=== PATIENT | female | born 1965 | race Caucasian/White ===

== ENCOUNTER 2018-04-14 09:19 | Emergency (ER) | payer OTHER ==
[~2018-04-14] VITALS: Ht 162.6 cm; Wt 58.6 kg
[~2018-04-14 09:19] MED LIST: ASP81TEC PO; ATOR40TA PO; BACL10TA PO; CEPH250T; CYCL10TA9 PO; DCS100C PO; FLC150T; GBPN300C PO; HYDR-34 PO; HYDR1TAB PO; IBP600T1 PO; KETO-22 PO; MTP25TSR PO; NAPR-243; OXYC-12 PO; PRM25T PO
--- OUTSIDE RECORDS SUMMARY | 2018-04-14 10:58 | XMS REPORT | Continuity of Care Document ---
Author Author [facility] Organization [facility] Address Unknown Phone Unavailable Allergies Active Description Code Type Severity Reaction Onset Reported/Identified Relationship to Patient Clinical Status Yes prednisone [id number] Drug Allergy Unknown N/A 05/20/2006 Yes aspirin [id number] Drug Allergy Moderate N/A 08/13/2012 Yes caffeine [id number] Drug Allergy Moderate N/A 08/13/2012 Yes fluconazole [id number] Drug Allergy Unknown N/A 06/19/2015 Medications There is no data. Problems Date Dx Coded Attending Type Code Diagnosis Diagnosed By 09/25/2010 Ot 787.02 08/19/2011 Ot 719.45 08/19/2011 Ot 843.9 08/19/2011 Ot E000.0 08/19/2011 Ot E014.1 08/19/2011 Ot E849.7 08/19/2011 Ot E927.0 09/14/2011 Ot 401.9 09/14/2011 Ot 724.2 08/14/2012 Ot 724.5 08/14/2012 Ot 733.6 09/01/2012 Ot 414.01 09/01/2012 Ot 724.4 09/01/2012 Ot 780.79 09/01/2012 Ot 786.59 09/01/2012 Ot V58.69 09/12/2014 CRISTHIAN BALLESTEROS MD Ot 920 09/12/2014 CRISTHIAN BALLESTEROS MD Ot 959.01 09/12/2014 CRISTHIAN BALLESTEROS MD Ot E000.8 09/12/2014 CRISTHIAN BALLESTEROS MD Ot E968.9 06/19/2015 Ot 719.45 06/19/2015 Ot 724.4 06/19/2015 Ot 959.9 06/19/2015 Ot E000.0 06/19/2015 Ot E849.7 06/19/2015 Ot E928.9 06/19/2015 Ot 272.4 06/19/2015 Ot V58.69 06/23/2015 FENECH DODAMARIS Ot 618.2 06/27/2015 FENECH DO, DAMARIS Tavares Ot 618.01 06/27/2015 FENECH DO, DAMARIS Tavares Ot 618.04 06/27/2015 FENECH DO, DAMARIS Tavares Ot V72.63 06/27/2015 FENECH DO, DAMARIS Tavares Ot V72.81 06/27/2015 FENECH DO, DAMARIS Tavares Ot V74.8 07/17/2015 FENECH DO, DAMARIS Tavares Ot 618.01 07/17/2015 FENECH DO, DAMARIS Tavares Ot 618.04 07/17/2015 FENECH DO, DAMARIS Tavares Ot V72.63 07/17/2015 FENECH DO, DAMARIS Tavares Ot V72.81 07/17/2015 FENECH DO, DAMARIS Tavares Ot V74.8 08/25/2015 STERLING MAYER MD Ot F41.9 08/25/2015 STERLING MAYER MD Ot F45.8 Procedures There is no data. Results There is no data. Encounters ACCT No. Visit Date/Time Discharge Status Pt. Type Provider Facility Loc./Unit Complaint [id number] 08/25/2015 15:08:00 08/25/2015 17:36:00 DIS Emergency STERLING MAYER MD [facility] ER [id number] 06/22/2015 07:49:00 06/23/2015 09:45:00 DIS Outpatient DAMARIS BERNAL DO [facility] [id number] 06/19/2015 14:36:00 06/19/2015 23:59:59 CLS Outpatient DAMARIS BERNAL DO [facility] PREOP [id number] 09/12/2014 14:00:00 09/12/2014 17:04:00 DIS Emergency CRISTHIAN BALLESTEROS MD [facility] ER [id number] 06/19/2015 14:36:00 Document Registration [id number] 10/27/2012 12:32:00 Document Registration [id number] 09/01/2012 09:26:00 Document Registration [id number] 08/13/2012 01:50:00 Document Registration [id number] 09/14/2011 05:22:00 Document Registration [id number] 08/22/2011 16:54:00 Document Registration [id number] 08/19/2011 09:24:00 Document Registration [id number] 09/25/2010 05:57:00 Document Registration [email or web address] 08/26/2015 07:13:16 ACT Document Registration
--- NOTE | 2018-04-14 11:04 | Diagnostic Imaging Report ---
PROCEDURE: CT head without contrast. TECHNIQUE: Multiple contiguous axial images were obtained through the brain without the use of intravenous contrast. INDICATION: Bumped top of head on a cabinet. Now with headache and blurred vision. CORRELATION STUDY: 09/12/2014 FINDINGS: Ventricles and sulci are slightly prominent for the patient's age. Normal martin-white differentiation. No findings to suggest edema. There is no intracranial hemorrhage. No midline shift or mass effect. The bony calvarium appearing intact and the visualized paranasal sinuses and mastoid air cells clear. IMPRESSION: Negative for acute traumatic intracranial abnormality Dictated by: Dictated on workstation # [id number]
[2018-04-14] MEDS ORDERED: KETOROLAC 30 MG/ML VIAL IM ONE (12:00)
[2018-04-14] MEDS ORDERED: ORPHENADRINE 60 MG/2 ML (NORFLEX) AMP IM ONE (12:00)
--- NOTE | 2018-04-14 12:07 | ED Head Injury ---
General Chief Complaint: Head/Cervical Problems Stated Complaint: HIT HEAD Nursing Triage Note: PT STATES SHE WAS UNDER A CABINET TO PLUG IN HER COMPUTER AND WHEN SHE RAISED UP SHE HIT HER HEAD ON THE CABINET. CC OF PAIN TO THE TOP OF HER HEAD. NO LOC, BUT FEELS A LITTLE NAUSEA. STATES "IT FERREIRA ON THE TOP OF MY HEAD." Source: patient Exam Limitations: no limitations History of Present Illness Date Seen by Provider: April 14, 2018 Time Seen by Provider: 10:15 Initial Comments This 52-year-old woman presents to the emergency room with complaints of headache, nausea, and blurred vision after striking her head on a cart while getting up from a bent position. This occurred at work. She denies loss of consciousness although her vision did go black for a few seconds. Nausea has improved the headache is worsening. Pain is worse despite taking 1300 mg of Tylenol. Allergies and Home Medications Allergies Coded Allergies: fluconazole (Unverified Allergy, Unknown, 06/19/15) prednisone (Verified Allergy, Unknown, 05/20/06) aspirin (Unverified Adverse Reaction, Intermediate, 08/13/12) caffeine (Unverified Adverse Reaction, Intermediate, 08/13/12) Home Medications Ondansetron 4 Mg Tab.rapdis, 4 MG SL Q4H PRN for NAUSEA/VOMITING-1ST LINE Prescribed by: SHERI ORTEGA on 04/14/18 1210 Patient Home Medication List Home Medication List Reviewed: Yes Review of Systems Constitutional: no symptoms reported Eyes: See HPI Ears, Nose, Mouth, Throat: no symptoms reported Respiratory: no symptoms reported Cardiovascular: no symptoms reported Gastrointestinal: see HPI Genitourinary: no symptoms reported : No Musculoskeletal: no symptoms reported Skin: no symptoms reported Psychiatric/Neurological: See HPI Endocrine: No Symptoms Reported Hematologic/Lymphatic: No Symptoms Reported Past Sgxhqnx-Bbqbke-Yhdfsu Hx Past Med/Social Hx: Reviewed and Corrections made Patient Social History Alcohol Use: Denies Use Recreational Drug Use: No Smoking Status: Never a Smoker Recent Foreign Travel: No Contact w/Someone Who Travel: No Recent Infectious Disease Expo: No Recent Hopitalizations: No Past Medical History Surgeries: Yes (BACK SURGERY, TUBES TIED, AP repair) Bladder Surgery, Orthopedic, Tubal Ligation Respiratory: No Cardiac: Yes (PREVIOUS HEART CATH 2011, 45% BLOCKAGE NO STENTS) Neurological: No Reproductive Disorders: No Female Reproductive Disorders: Denies EVENT MARKETING COORDINATOR History: Menopausal Sexually Transmitted Disease: No HIV/AIDS: No Genitourinary: No Gastrointestinal: No Musculoskeletal: Yes (PREVIOUS BACK SURGERY) Chronic Back Pain Endocrine: No Loss of Vision: Denies Hearing Impairment: Denies Cancer: No Psychosocial: No Integumentary: No Blood Disorders: No Adverse Reaction/Blood Tranf: No Family Medical History ABNORMAL PAP G8 SISTER FH: COPD (chronic obstructive pulmonary disease) 19 FATHER Hypertension 19 FATHER Physical Exam Vital Signs Vital Signs - First Documented 04/14/18 09:35 Temp 97.3 Pulse 83 Resp 20 B/P (MAP) 143/97 (112) Pulse Ox 99 O2 Delivery Room Air Capillary Refill : Less Than 3 Seconds General Appearance: WD/WN, mild distress HEENT: PERRL/EOMI, TMs normal, pharynx normal, other (Tenderness over the central parietal scalp) Neck: non-tender, supple, normal inspection Cardiovascular: regular rate, rhythm, no edema, no murmur Respiratory: lungs clear, normal breath sounds, no respiratory distress, no accessory muscle use Gastrointestinal: normal bowel sounds, non tender, soft Extremities: normal inspection Psychiatric: alert, oriented x 3 Crainal Nerves: normal hearing, normal speech, PERRL Coordination/Gait: normal finger to nose, normal gait Motor/Sensory: no motor deficit, no sensory deficit Skin: normal color, warm/dry Progress/Results/Core Measures Results/Orders My Orders Orders - SHERI MILLER MD Ct Head Wo (04/14/18 10:21) Ketorolac Injection (Toradol Injection) (04/14/18 12:00) Orphenadrine Injection (Norflex Injectio (04/14/18 12:00) Medications Given in ED Vital Signs/I&O Blood Pressure Mean: 112 Progress Progress Note : Progress Note Risks and benefits of CT imaging discussed with patient. She wishes to proceed with CT imaging. CT was unremarkable. Patient was treated with Toradol and Norflex and dismissed home. Concussion precautions were reviewed. Occupational health paperwork was completed. Diagnostic Imaging Diagonstic Imaging: CT Plain Films/CT/US/NM/MRI: head Comments NAME: VICTOR MANUEL BANEGAS MED REC#: [id number] PT STATUS: DEP ER : 1965 PHYSICIAN: SHERI MILLER MD ADMIT DATE: 04/14/18/ER Signed Date of Exam: 04/14/18 CT HEAD WO PROCEDURE: CT head without contrast. TECHNIQUE: Multiple contiguous axial images were obtained through the brain without the use of intravenous contrast. INDICATION: Bumped top of head on a cabinet. Now with headache and blurred vision. CORRELATION STUDY: 09/12/2014 FINDINGS: Ventricles and sulci are slightly prominent for the patient's age. Normal martin-white differentiation. No findings to suggest edema. There is no intracranial hemorrhage. No midline shift or mass effect. The bony calvarium appearing intact and the visualized paranasal sinuses and mastoid air cells clear. IMPRESSION: Negative for acute traumatic intracranial abnormality Dictated by: Dictated on workstation # [id number] Dict: 04/14/18 1047 Trans: 04/14/18 1531 Interpreted by: BRUNO BELLE DO Electronically signed by: BRUNO BELLE DO 04/14/18 1531 Departure Impression Primary Impression: Concussion without loss of consciousness Qualified Codes: S06.0X0A - Concussion without loss of consciousness, initial encounter Disposition: 01 HOME, SELF-CARE Condition: Improved Departure-Patient Inst. Decision time for Depature: 12:04 Referrals: JASWINDER HERRERA MD (PCP/Family) Primary Care Physician Patient Instructions: Concussion, Adult (DC) Add. Discharge Instructions: For pain you may take Ibuprofen up to 600 mg every 6 hours as needed. You may add ibuprofen up to 1000 mg every 6 hours as needed for additional pain relief. Drink plenty of clear liquids to stay well-hydrated. Avoid any activity that could predispose you to further head injury until at least 7 days after concussion symptoms resolve. These activities might include use of ladders, bike riding, horseback riding, contact sports, etc. If any activity causes increase in concussion symptoms including nausea, blurry vision, confusion, headache, irritability, sleep disturbance, etc., then stop that activity and rest. You may use Zofran (ondansetron) as prescribed for nausea and vomiting. All discharge instructions reviewed with patient and/or family. Voiced understanding. Scripts Ondansetron (Zofran Odt) 4 Mg Tab.rapdis 4 MG SL Q4H PRN for NAUSEA/VOMITING-1ST LINE, #8 TAB Prov: SHERI MILLER MD 04/14/18 Work/School Note: Work Release Form Date Seen in the Emergency Department: April 14, 2018 Return to Work: April 17, 2018 Other Restrictions Listed Below: No activity at risk for head injury or strenuous activity x 1 week. SHERI MILLER MD April 14, 2018 12:07
[2018-04-14] MEDS ORDERED: ONDA4TAB8 SL (12:10)
[2018-04-14 12:21] VITALS: BP 131/83
== END 2018-04-14 12:20 | disposition home or self-care (01) ==
LOC: EDUNIT# 09:19 → ER 09:21
DX: S06.0X0A Concussion without loss of consciousness, initial encounter (principal); Z98.51 Tubal ligation status; Z88.6 Allergy status to analgesic agent; Z88.8 Allergy status to other drugs, medicaments and biological substances; W22.09XA Striking against other stationary object, initial encounter
CPT/HCPCS: 70450; 96372

== ENCOUNTER 2018-05-09 15:15 | Emergency (ER) | payer BC, OTHER ==
[~2018-05-09] VITALS: Ht 162.6 cm; Wt 63.5 kg
[~2018-05-09 15:15] MED LIST changes: +ONDA4TAB8 SL
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
--- NOTE | 2018-05-09 15:40 | ED GU-Female ---
General Chief Complaint: -Female Stated Complaint: ABNORMAL VAG BLEEDING X 2 DAYS Nursing Triage Note: PATIENT STATES THAT SHE HAS NOT HAD A PERIOD IN 7 YEARS. SHE STARTED HAVING HEAVY BLEEDING 2 DAYS AGO AND IS FEELING WEAK. SHE IS SOAKING THROUGH PADS EVERY 1-1.5 HRS. Nursing Sepsis Screen: No Definite Risk Source: patient Exam Limitations: no limitations History of Present Illness Date Seen by Provider: May 09, 2018 Time Seen by Provider: 15:38 Initial Comments to ER per private vehicle with reports of vaginal bleeding for 2 days. She also reports some suprapubic abdominal pain. She is postmenopausal with last menstrual period about 7 years ago. She states that she's used nearly one tampon every hour to 1.5 hours since yesterday. She is beginning to feel lightheaded.additionally, she states that on Friday in the past week, 05/04/18 she developed some breast tenderness which was unusual for her. She is not on hormone therapy.yesterday at the onset of bleeding she did call Dr. BERNAL from [employer] who will see her on the . Timing/Duration: just prior to arrival Severity/Quality: moderate Location: suprapubic Radiation: suprapubic Activities at Onset: none Prior Genitourinary Problems: none Allergies and Home Medications Allergies Coded Allergies: fluconazole (Unverified Allergy, Unknown, 06/19/15) prednisone (Verified Allergy, Unknown, 05/20/06) aspirin (Unverified Adverse Reaction, Intermediate, 08/13/12) caffeine (Unverified Adverse Reaction, Intermediate, 08/13/12) Home Medications Medroxyprogesterone Acetate 10 Mg Tablet, 10 MG PO DAILY Prescribed by: EJ FUENTES on 05/09/18 1648 Ondansetron 4 Mg Tab.rapdis, 4 MG SL Q4H PRN for NAUSEA/VOMITING-1ST LINE Prescribed by: SHERI ORTEGA on 04/14/18 1210 Patient Home Medication List Home Medication List Reviewed: Yes Review of Systems Constitutional: see HPI EENTM: see HPI Respiratory: no symptoms reported Cardiovascular: no symptoms reported Genitourinary: no symptoms reported Musculoskeletal: no symptoms reported Skin: see HPI Psychiatric/Neurological: No Symptoms Reported Endocrine: No Symptoms Reported Past Ssbftei-Bmxvff-Uvrpqs Hx Patient Social History Alcohol Use: Denies Use Recreational Drug Use: No Smoking Status: Never a Smoker 2nd Hand Smoke Exposure: No Recent Foreign Travel: No Contact w/Someone Who Travel: No Recent Infectious Disease Expo: No Recent Hopitalizations: No Physical Abuse: No Sexual Abuse: No Seasonal Allergies Seasonal Allergies: No Past Medical History Surgeries: Yes (BACK SURGERY, TUBES TIED, AP repair) Bladder Surgery, Orthopedic, Tubal Ligation Respiratory: No Cardiac: Yes (PREVIOUS HEART CATH 2011, 45% BLOCKAGE NO STENTS) Neurological: No Reproductive Disorders: No 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 Sexually Transmitted Disease: No HIV/AIDS: No Genitourinary: No Gastrointestinal: No Musculoskeletal: Yes (PREVIOUS BACK SURGERY) Chronic Back Pain Endocrine: No Loss of Vision: Denies Hearing Impairment: Denies Cancer: No Psychosocial: No Nursing Suicide Risk Score: 0 Integumentary: No Blood Disorders: No Adverse Reaction/Blood Tranf: No Family Medical History ABNORMAL PAP G8 SISTER FH: COPD (chronic obstructive pulmonary disease) 19 FATHER Hypertension 19 FATHER Physical Exam Vital Signs Vital Signs - First Documented 05/09/18 15:20 Temp 97.8 Pulse 77 Resp 18 B/P (MAP) 141/88 (105) Pulse Ox 98 Capillary Refill : Less Than 3 Seconds General Appearance: WD/WN, no apparent distress HEENT: PERRL/EOMI, normal ENT inspection Neck: non-tender, full range of motion Respiratory: no respiratory distress, no accessory muscle use Gastrointestinal: normal bowel sounds, soft, tenderness (suprapubic) Pelvic: normal external exam, other (cervical loss was visualized with a small amount of dark blood at the cervical os and in the vaginal vault. This was suctioned out using a yankauer. No active bleeding visualized at this time. Question of a small nodule to the superior lateral aspectof the cervix itself but there is no bleeding from this) Extremities: normal range of motion, non-tender Neurologic/Psychiatric: alert, normal mood/affect, oriented x 3 Skin: normal color, warm/dry Progress/Results/Core Measures Suspected Sepsis Recent Fever Within 48 Hours: No Infection Criteria Present: None New/Unexplained Altered Menta: No Sepsis Screen: No Definite Risk SIRS Temperature:97.8 Pulse: 77 Respiratory Rate: 18 Laboratory Tests 05/09/18 15:45: White Blood Count 7.7 Blood Pressure 141 /88 Mean: 105 Laboratory Tests 05/09/18 15:45: Creatinine 0.66, INR Comment 1.0, Platelet Count 187, Total Bilirubin 0.4 Results/Orders Lab Results Laboratory Tests Test 05/09/18 15:35 05/09/18 15:45 Range/Units Urine Color YELLOW Urine Clarity CLEAR Urine pH 6.5 5-9 Urine Specific [place] 1.010 L 1.016-1.022 Urine Protein NEGATIVE NEGATIVE Urine Glucose (UA) NEGATIVE NEGATIVE Urine Ketones NEGATIVE NEGATIVE Urine Nitrite NEGATIVE NEGATIVE Urine Bilirubin NEGATIVE NEGATIVE Urine Urobilinogen NORMAL NORMAL MG/DL Urine Leukocyte Esterase NEGATIVE NEGATIVE Urine RBC (Auto) 5+ H NEGATIVE Urine RBC 25-50 H /HPF Urine WBC NONE /HPF Urine Squamous Epithelial Cells 0-2 /HPF Urine Crystals NONE /LPF Urine Bacteria NEGATIVE /HPF Urine Casts NONE /LPF Urine Mucus NEGATIVE /LPF Urine Culture Indicated NO White Blood Count 7.7 4.3-11.0 10^3/uL Red Blood Count 4.32 L 4.35-5.85 10^6/uL Hemoglobin 13.4 11.5-16.0 G/DL Hematocrit 39 35-52 % Mean Corpuscular Volume 89 80-99 FL Mean Corpuscular Hemoglobin 31 25-34 PG Mean Corpuscular Hemoglobin Concent 35 32-36 G/DL Red Cell Distribution Width 12.8 10.0-14.5 % Platelet Count 187 130-400 10^3/uL Mean Platelet Volume 10.4 7.4-10.4 FL Neutrophils (%) (Auto) 67 42-75 % Lymphocytes (%) (Auto) 23 12-44 % Monocytes (%) (Auto) 9 0-12 % Eosinophils (%) (Auto) 0 0-10 % Basophils (%) (Auto) 0 0-10 % Neutrophils # (Auto) 5.2 1.8-7.8 X 10^3 Lymphocytes # (Auto) 1.8 1.0-4.0 X 10^3 Monocytes # (Auto) 0.7 0.0-1.0 X 10^3 Eosinophils # (Auto) 0.0 0.0-0.3 10^3/uL Basophils # (Auto) 0.0 0.0-0.1 10^3/uL Prothrombin Time 12.9 12.2-14.7 SEC INR Comment 1.0 0.8-1.4 Sodium Level 141 135-145 MMOL/L Potassium Level 3.9 3.6-5.0 MMOL/L Chloride Level 108 H 98-107 MMOL/L Carbon Dioxide Level 23 21-32 MMOL/L Anion Gap 10 5-14 MMOL/L Blood Urea Nitrogen 8 7-18 MG/DL Creatinine 0.66 0.60-1.30 MG/DL Estimat Glomerular Filtration Rate > 60 BUN/Creatinine Ratio 12 Glucose Level 100 70-105 MG/DL Calcium Level 9.2 8.5-10.1 MG/DL Total Bilirubin 0.4 0.1-1.0 MG/DL Aspartate Amino Transf (AST/SGOT) 19 5-34 U/L Alanine Aminotransferase (ALT/SGPT) 18 0-55 U/L Alkaline Phosphatase 97 40-136 U/L Total Protein 7.0 6.4-8.2 GM/DL Albumin 4.3 3.2-4.5 GM/DL My Orders Orders - EJ FUENTES APRN Cbc With Automated Diff (05/09/18 15:29) Comprehensive Metabolic Panel (05/09/18 15:29) Ua Culture If Indicated (05/09/18 15:29) Protime With Inr (05/09/18 15:29) Us Non Ob Transvaginal [id number] (05/09/18 15:29) Medroxyprogesterone Tablet (Provera Tabl (05/09/18 17:00) Vital Signs/I&O 05/09/18 15:20 Temp 97.8 Pulse 77 Resp 18 B/P (MAP) 141/88 (105) Pulse Ox 98 Capillary Refill : Less Than 3 Seconds Blood Pressure Mean: 105 Diagnostic Imaging Diagonstic Imaging: Ultrasound Comments NAME: VICTOR MANUEL BANEGAS [facility] REC#: [id number] PT STATUS: REG ER : 1965 PHYSICIAN: EJ FUENTES APRN ADMIT DATE: 05/09/18/ER Draft Date of Exam:05/09/18 US NON OB TRANSVAGINAL [id number] REASON FOR EXAM: Vaginal bleeding for 2 days. COMPARISON: None. TECHNIQUE: Transvaginal pelvic sonogram was performed. FINDINGS: The uterus is anteverted and within normal limits in size. The uterus has a heterogeneous echotexture. The endometrium is mildly thickened, measuring between 7 and 9 mm. The right ovary is not seen. The left ovary measures 4.2 x 4.2 x 3.4 cm and demonstrates a 3.4 x 3.6 simple appearing cyst. There is vascular flow in the ovary. No significant free fluid is seen. IMPRESSION: 1. Heterogeneous appearance of the uterus with thickened endometrium. Given the history of bleeding, consider tissue sampling. 2. Simple appearing 3.6 cm left ovarian cyst. This is likely benign; however, consider followup ultrasound in one year. Dictated on workstation # [id number] Dict: 05/09/18 1626 Trans: 05/09/18 1634 [facility] [phone] Interpreted by: VASQUEZ TILLEY MD Electronically signed by: Departure Communication (Admissions) I spoke with Dr. BERNAL at 1644. He recommends Provera 10 mg daily for 2 weeks. He'll evaluate as scheduled on the . Impression Primary Impression: Postmenopausal vaginal bleeding Additional Impression: Endometrial thickening on ultrasound Disposition: HOME, SELF-CARE Condition: Stable Departure-Patient Inst. Decision time for Depature: 16:46 Referrals: JASWINDER HERRERA MD (PCP) Primary Care Physician DAMARIS BERNAL DO (Family) Primary Care Physician Patient Instructions: IRREGULAR VAGINAL BLEEDING Add. Discharge Instructions: 1. Follow-up with Dr. BERNAL as scheduled. Return to ER for any concerns or worsening symptoms.medication as directed. All discharge instructions reviewed with patient and/or family. Voiced understanding. Scripts Medroxyprogesterone Acetate (Medroxyprogesterone Acetate) 10 Mg Tablet 10 MG PO DAILY for 12 Days, #12 TAB Prov: EJ FUENTES APRN 05/09/18 Copy Copies To 1: DAMARIS BERNAL PETER J APRN May 09, 2018 15:39
[2018-05-09 15:43] LABS: BILIRUBIN,URINE NEGATIVE (NEGATIVE); CLARITY,URINE CLEAR; COLOR,URINE YELLOW; GLUCOSE, URINE (UA) NEGATIVE (NEGATIVE); KETONES,URINE NEGATIVE (NEGATIVE); LEUKOCYTE ESTERASE ,URINE NEGATIVE (NEGATIVE); NITRITE,URINE NEGATIVE (NEGATIVE); PH,URINE 6.5 (5-9); PROTEIN,URINE NEGATIVE (NEGATIVE); UROBILINOGEN,URINE NORMAL (NORMAL)
[2018-05-09 15:49] LABS: BACTERIA,URINE NEGATIVE /HPF; RBC,URINE 25-50 /HPF; SQUAMOUS EPITHELIAL CELL,UR 0-2 /HPF
[2018-05-09 15:55] LABS: BASOPHILS % (AUTO) 0 % (0-10); EOSINOPHILS % (AUTO) 0 % (0-10); HEMATOCRIT 39 % (35-52); HEMOGLOBIN 13.4 G/DL (11.5-16.0); LYMPHOCYTES # (AUTO) 1.8 X 10^3 (1.0-4.0); LYMPHOCYTES % (AUTO) 23 % (12-44); MEAN CORPUSCULAR HEMOGLOBIN 31 PG (25-34); MEAN CORPUSCULAR HGB CONC 35 G/DL (32-36); MEAN CORPUSCULAR VOLUME 89 FL (80-99); MEAN PLATELET VOLUME 10.4 FL (7.4-10.4); MONOCYTES # (AUTO) 0.7 X 10^3 (0.0-1.0); MONOCYTES % (AUTO) 9 % (0-12); NEUTROPHILS # (AUTO) 5.2 X 10^3 (1.8-7.8); NEUTROPHILS % (AUTO) 67 % (42-75); PLATELET COUNT 187 10^3/uL (130-400); RED BLOOD COUNT 4.32 10^6/uL (4.35-5.85); RED CELL DISTRIBUTION WIDTH 12.8 % (10.0-14.5); WHITE BLOOD COUNT 7.7 10^3/uL (4.3-11.0)
[2018-05-09 16:11] LABS: PROTHROMBIN TIME PATIENT 12.9 SEC (12.2-14.7)
[2018-05-09 16:13] LABS: ALANINE AMINOTRANSFERASE 18 U/L (0-55); ALBUMIN 4.3 GM/DL (3.2-4.5); ALKALINE PHOSPHATASE 97 U/L (40-136); BILIRUBIN,TOTAL 0.4 MG/DL (0.1-1.0); BUN/CREATININE RATIO 12; CALCIUM 9.2 MG/DL (8.5-10.1); CARBON DIOXIDE 23 MMOL/L (21-32); CHLORIDE 108 MMOL/L (98-107); CREATININE SERUM 0.66 MG/DL (0.60-1.30); GFR ESTIMATED > 60; GLUCOSE 100 MG/DL (70-105); POTASSIUM 3.9 MMOL/L (3.6-5.0); SODIUM 141 MMOL/L (135-145)
--- NOTE | 2018-05-09 16:35 | Diagnostic Imaging Report ---
REASON FOR EXAM: Vaginal bleeding for 2 days. COMPARISON: None. TECHNIQUE: Transvaginal pelvic sonogram was performed. FINDINGS: The uterus is anteverted and within normal limits in size. The uterus has a heterogeneous echotexture. The endometrium is mildly thickened, measuring between 7 and 9 mm. The right ovary is not seen. The left ovary measures 4.2 x 4.2 x 3.4 cm and demonstrates a 3.4 x 3.6 simple appearing cyst. There is vascular flow in the ovary. No significant free fluid is seen. IMPRESSION: 1. Heterogeneous appearance of the uterus with thickened endometrium. Given the history of bleeding, consider tissue sampling. 2. Simple appearing 3.6 cm left ovarian cyst. This is likely benign; however, consider followup ultrasound in one year. Dictated by: Dictated on workstation # [id number]
[2018-05-09] MEDS ORDERED: MEDR10TA9 PO (16:48)
[2018-05-09 17:00] VITALS: BP 141/88
[2018-05-09] MEDS ORDERED: medroxyPROGESTERone 10 MG (PROVERA) TAB PO ONE (17:00)
== END 2018-05-09 17:01 | disposition home or self-care (01) ==
LOC: EDUNIT# 15:15 → ER 15:16
DX: N95.0 Postmenopausal bleeding (principal); N85.8 Other specified noninflammatory disorders of uterus; Z98.51 Tubal ligation status; Z88.6 Allergy status to analgesic agent; Z88.8 Allergy status to other drugs, medicaments and biological substances
CPT/HCPCS: 36415; 76830; 80053; 81000; 85025; 85610

== ENCOUNTER → 2018-06-02 | Outpatient (CLI) | payer OTHER ==
[~2018-06-02] MED LIST changes: +MEDR10TA9 PO
--- NOTE | 2018-06-02 16:30 | Diagnostic Imaging Report ---
INDICATION: Routine screening. COMPARISON: No prior mammograms are available for comparison. This is a baseline study. TECHNIQUE: 2D and 3D bilateral screening mammography was performed with CAD. FINDINGS: Both breasts are heterogeneously dense, limiting the sensitivity of mammography. No dominant mass or malignant-appearing microcalcifications are seen. The axillae are unremarkable. IMPRESSION: No mammographic features suspicious for malignancy are identified. ACR BI-RADS Category 1: Negative. Result letter will be mailed to the patient. Note: At least 10% of breast cancer is not imaged by mammography. Dictated by: Dictated on workstation # [id number]
== END ==
LOC: RAD 15:20
PROVIDERS: ATTEND Obstetrics & Gynecology
DX: Z12.31 Encounter for screening mammogram for malignant neoplasm of breast (principal)
CPT/HCPCS: 77067

== ENCOUNTER 2020-10-23 15:14 | Emergency (ER) | payer OTHER ==
[~2020-10-23] VITALS: Ht 162 cm; Wt 59.0 kg
[2020-10-23 16:24] LABS: BASOPHILS % (AUTO) 0 % (0-10); EOSINOPHILS % (AUTO) 0 % (0-10); HEMATOCRIT 44 % (35-52); HEMOGLOBIN 14.6 g/dL (11.5-16.0); LYMPHOCYTES # (AUTO) 1.4 10^3/uL (1.0-4.0); LYMPHOCYTES % (AUTO) 25 % (12-44); MEAN CORPUSCULAR HEMOGLOBIN 30 pg (25-34); MEAN CORPUSCULAR HGB CONC 33 g/dL (32-36); MEAN CORPUSCULAR VOLUME 90 fL (80-99); MEAN PLATELET VOLUME 10.1 fL (9.0-12.2); MONOCYTES # (AUTO) 0.4 10^3/uL (0.0-1.0); MONOCYTES % (AUTO) 7 % (0-12); NEUTROPHILS # (AUTO) 3.8 10^3/uL (1.8-7.8); NEUTROPHILS % (AUTO) 68 % (42-75); PLATELET COUNT 164 10^3/uL (130-400); WHITE BLOOD COUNT 5.6 10^3/uL (4.3-11.0)
[2020-10-23 16:26] LABS: ALBUMIN 4.6 GM/DL (3.2-4.5)
[2020-10-23 16:27] LABS: CHLORIDE 101 MMOL/L (98-107); POTASSIUM 4.1 MMOL/L (3.6-5.0); SODIUM 142 MMOL/L (135-145)
[2020-10-23 16:28] LABS: CALCIUM 9.6 MG/DL (8.5-10.1)
[2020-10-23 16:29] LABS: GLUCOSE 98 MG/DL (70-105); TOTAL PROTEIN 7.8 GM/DL (6.4-8.2)
[2020-10-23 16:30] LABS: CARBON DIOXIDE 29 MMOL/L (21-32)
[2020-10-23 16:31] LABS: BILIRUBIN,TOTAL 0.4 MG/DL (0.1-1.0)
[2020-10-23 16:32] LABS: ALKALINE PHOSPHATASE 117 U/L (40-136)
[2020-10-23 16:33] LABS: GFR ESTIMATED > 60
[2020-10-23 16:34] LABS: BUN/CREATININE RATIO 11
[2020-10-23 16:35] LABS: ALANINE AMINOTRANSFERASE 47 U/L (0-55)
[2020-10-23] MEDS ORDERED: LACTATED RINGERS 1,000 ML IV ONE (16:45)
[2020-10-23] MEDS ORDERED: KETOROLAC 30 MG/ML VIAL IVP ONE (16:45)
--- NOTE | 2020-10-23 16:52 | ED Respiratory ---
General Chief Complaint: Respiratory Problems Stated Complaint: CHEST TIGHTNESS/SOB/COVID POSITIVE Nursing Triage Note: PT STATES COVID POSITIVE, TESTED LAST FRIDAY, CC TODAY OF CHEST TIGHTNESS AND SOB, O2 99% AT TRIAGE ON ROOM AIR. Source: patient Exam Limitations: no limitations History of Present Illness Date Seen by Provider: Oct 23, 2020 Time Seen by Provider: 16:05 Initial Comments Patient presents ER by private conveyance from home with chief complaint she was directed here by Dr. Del Rosario and she was afraid she might have pneumonia. She was diagnosed with COVID 19 6 days ago. She started having symptoms 1 week ago. She is not having any fever today. She's not having any nausea vomiting or diarrhea. She says she's been able to keep up with her eating and drinking until today. She has not had any NSAIDs or Tylenol today. She's not having any chest pain just shortness of breath and cough sometimes productive of clear phlegm. She says in the last 3 years she's had pneumonia twice about this time of year is afraid she might get again. She does not have a history of pulmonary disease COPD, asthma etc. She is not on breathing treatments nor does he follow with a director rehabilitation program her differential specialist. Allergies and Home Medications Allergies Coded Allergies: fluconazole (Unverified Allergy, Unknown, 06/19/15) prednisone (Verified Allergy, Unknown, 05/20/06) aspirin (Unverified Adverse Reaction, Intermediate, 08/13/12) caffeine (Unverified Adverse Reaction, Intermediate, 08/13/12) Home Medications Medroxyprogesterone Acetate 10 Mg Tablet, 10 MG PO DAILY Prescribed by: EJ FUENTES on 05/09/18 1648 Ondansetron 4 Mg Tab.rapdis, 4 MG SL Q4H PRN for NAUSEA/VOMITING-1ST LINE Prescribed by: SHERI ORTEGA on 04/14/18 1210 Patient Home Medication List Home Medication List Reviewed: Yes Review of Systems Review of Systems Constitutional: No chills, No diaphoresis EENTM: No ear discharge, No ear pain Respiratory: cough, phlegm, short of breath Cardiovascular: No chest pain, No Hx of Intervention, No palpitations, No vascular heart diseas Gastrointestinal: No abdominal pain, No constipation, No diarrhea Genitourinary: No discharge, No dysuria Musculoskeletal: No back pain, No joint pain Skin: No pruritus, No rash Psychiatric/Neurological: Denies Headache, Denies Numbness Hematologic/Lymphatic: Denies Anemia, Denies Blood Clots All Other Systems Reviewed Negative Unless Noted: Yes Past Utlvyci-Cwynam-Laaakd Hx Patient Social History Alcohol Use: Denies Use Recreational Drug Use: No Smoking Status: Never a Smoker 2nd Hand Smoke Exposure: No Recent Foreign Travel: No Contact w/Someone Who Travel: No Recent Infectious Disease Expo: Yes Recent Hopitalizations: No Physical Abuse: No Sexual Abuse: No Mistreated: No Seasonal Allergies Seasonal Allergies: No Past Medical History Surgeries: Yes (BACK SURGERY, TUBES TIED, AP repair) Bladder Surgery, Orthopedic, Tubal Ligation Respiratory: Yes (PNEUMONIA THE LAST 2 YEARS) Pneumonia Cardiac: Yes (PREVIOUS HEART CATH 2011, 45% BLOCKAGE NO STENTS) Coronary Artery Disease Neurological: No Reproductive Disorders: No Female Reproductive Disorders: Denies [employer]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 Sexually Transmitted Disease: No HIV/AIDS: No Genitourinary: No Gastrointestinal: No Musculoskeletal: Yes (PREVIOUS BACK SURGERY) Chronic Back Pain Endocrine: No Loss of Vision: Denies Hearing Impairment: Denies Cancer: No Psychosocial: No Integumentary: No Blood Disorders: No Adverse Reaction/Blood Tranf: No Family Medical History ABNORMAL PAP G8 SISTER FH: COPD (chronic obstructive pulmonary disease) 19 FATHER Hypertension 19 FATHER Physical Exam Vital Signs - First Documented 10/23/20 15:55 Temp 36.7 Pulse 103 Resp 20 B/P (MAP) 163/109 (127) Pulse Ox 99 O2 Delivery Room Air Capillary Refill : Less Than 3 Seconds Height: 5'4.00" Weight: 140lbs. 0oz. [id number]; 22.00 BMI Method:Stated General Appearance: WD/WN, mild distress Eyes: Bilateral Eye Normal Inspection, Bilateral Eye PERRL, Bilateral Eye EOMI HEENT: PERRL/EOMI, normal ENT inspection, TMs normal; No pharynx normal (oral mucosa is mildly dry) Neck: full range of motion, supple, normal inspection Respiratory: lungs clear, no respiratory distress, no accessory muscle use, decreased breath sounds Cardiovascular: normal peripheral pulses, regular rate, rhythm Gastrointestinal: normal bowel sounds, non tender, soft Extremities: normal range of motion, non-tender, normal inspection, normal capillary refill Neurologic/Psychiatric: no motor/sensory deficits, alert, normal mood/affect, oriented x 3 Skin: normal color, warm/dry Progress/Results/Core Measures Suspected Sepsis Recent Fever Within 48 Hours: Yes Infection Criteria Present: Documented Infection New/Unexplained Altered Menta: No Sepsis Screen: Possible Severe Sepsis Risk SIRS Temperature: Pulse: 103 Respiratory Rate: 20 Laboratory Tests 10/23/20 15:50: White Blood Count 5.6 Blood Pressure 163 /109 Mean: 127 Laboratory Tests 10/23/20 15:50: Creatinine 0.70, Platelet Count 164, Total Bilirubin 0.4 Results/Orders Lab Results Laboratory Tests Test 10/23/20 15:50 Range/Units White Blood Count 5.6 4.3-11.0 10^3/uL Red Blood Count 4.87 3.80-5.11 10^6/uL Hemoglobin 14.6 11.5-16.0 g/dL Hematocrit 44 35-52 % Mean Corpuscular Volume 90 80-99 fL Mean Corpuscular Hemoglobin 30 25-34 pg Mean Corpuscular Hemoglobin Concent 33 32-36 g/dL Red Cell Distribution Width 12.1 10.0-14.5 % Platelet Count 164 130-400 10^3/uL Mean Platelet Volume 10.1 9.0-12.2 fL Immature Granulocyte % (Auto) 0 % Neutrophils (%) (Auto) 68 42-75 % Lymphocytes (%) (Auto) 25 12-44 % Monocytes (%) (Auto) 7 0-12 % Eosinophils (%) (Auto) 0 0-10 % Basophils (%) (Auto) 0 0-10 % Neutrophils # (Auto) 3.8 1.8-7.8 10^3/uL Lymphocytes # (Auto) 1.4 1.0-4.0 10^3/uL Monocytes # (Auto) 0.4 0.0-1.0 10^3/uL Eosinophils # (Auto) 0.0 0.0-0.3 10^3/uL Basophils # (Auto) 0.0 0.0-0.1 10^3/uL Immature Granulocyte # (Auto) 0.0 0.0-0.1 10^3/uL D-Dimer <= 0.27 0.00-0.49 UG/ML Sodium Level 142 135-145 MMOL/L Potassium Level 4.1 3.6-5.0 MMOL/L Chloride Level 101 98-107 MMOL/L Carbon Dioxide Level 29 21-32 MMOL/L Anion Gap 12 5-14 MMOL/L Blood Urea Nitrogen 8 7-18 MG/DL Creatinine 0.70 0.60-1.30 MG/DL Estimat Glomerular Filtration Rate > 60 BUN/Creatinine Ratio 11 Glucose Level 98 70-105 MG/DL Calcium Level 9.6 8.5-10.1 MG/DL Corrected Calcium 8.5-10.1 MG/DL Total Bilirubin 0.4 0.1-1.0 MG/DL Aspartate Amino Transf (AST/SGOT) 35 H 5-34 U/L Alanine Aminotransferase (ALT/SGPT) 47 0-55 U/L Alkaline Phosphatase 117 40-136 U/L C-Reactive Protein High Sensitivity 1.52 H 0.00-0.50 MG/DL Total Protein 7.8 6.4-8.2 GM/DL Albumin 4.6 H 3.2-4.5 GM/DL Procalcitonin 0.02 <0.10 NG/ML My Orders Orders - CORA,RADHA J Chest 1 View, Ap/Pa Only (10/23/20 16:15) Cbc With Automated Diff (10/23/20 16:15) Continuous Ekg Monitoring (10/23/20 16:15) Ekg Tracing (10/23/20 16:15) Comprehensive Metabolic Panel (10/23/20 16:15) Lactated Ringers (Lr 1000 Ml Iv Solution (10/23/20 16:45) Ketorolac Injection (Toradol Injection) (10/23/20 16:45) Hs C Reactive Protein (10/23/20 16:32) Procalcitonin (Pct) (10/23/20 16:32) Fibrin Degradation Products (10/23/20 16:52) Medications Given in ED Current Medications Medications Dose Ordered Sig/Kathy Route Start Time Stop Time Status Last Admin Dose Admin Ketorolac Tromethamine 30 mg ONCE ONCE IVP 10/23/20 16:45 10/23/20 16:46 DC 10/23/20 17:03 30 MG Lactated Ringer's 1,000 ml @ 0 mls/hr Q0M ONCE IV 10/23/20 16:45 10/23/20 16:46 DC 10/23/20 17:03 1,000 MLS/HR Vital Signs/I&O 10/23/20 10/23/20 15:55 17:03 Temp 36.7 36.7 Pulse 103 Resp 20 B/P (MAP) 163/109 (127) Pulse Ox 99 O2 Delivery Room Air Capillary Refill : Less Than 3 Seconds Blood Pressure Mean: 127 Progress Note : Time: 16:50 Progress Note Plan to get a chest x-ray d-dimer and labs to help rule out pneumonia or blood clots related to COVID-19. She has 98-100% on room air and no emesis. We'll give her a liter fluids and Toradol for her discomfort. ECG Initial ECG Impression Date: Oct 23, 2020 Initial ECG Impression Time: 16:14 Initial ECG Rate: 95 Initial ECG Rhythm: Normal Sinus Initial ECG Intervals: Normal Initial ECG Impression: Normal, Nonspecific Changes Initial ECG Comparisson: No Previous ECG Available Comment Normal sinus rhythm without clinically relevant ST elevation or depression. Diagnostic Imaging Diagonstic Imaging: Xray Plain Films/CT/US/NM/MRI: chest Comments NAME: VICTOR MANUEL BANEGAS MED REC#: [id number] PT STATUS: REG ER : 1965 PHYSICIAN: RADHA SHEPHERD MD ADMIT DATE: 10/23/20/ER Draft Date of Exam:10/23/20 CHEST 1 VIEW, AP/PA ONLY EXAMINATION: Chest 1 view HISTORY: Cough, shortness of breath, COVID positive. COMPARISON: Chest radiograph of 09/12/2014. FINDINGS: Heart size and pulmonary vasculature are normal. The lungs are clear without consolidation, pleural effusion, or pneumothorax. The osseous structures are intact. IMPRESSION: 1. No acute radiographic abnormality in the chest. Dictated on workstation # [id number] Dict: 10/23/20 1724 Trans: 10/23/20 1727 [id number] Interpreted by: BINA SOSA DO Electronically signed by: Reviewed: Reviewed by Me Departure Impression Primary Impression: COVID-19 Disposition: 01 HOME, SELF-CARE Condition: Stable Departure-Patient Inst. Decision time for Depature: 18:11 Referrals: JASWINDER HERRERA MD (PCP/Family) Primary Care Physician Patient Instructions: Coronavirus Disease 2019 (COVID-19) (DC) Add. Discharge Instructions: We have ruled out blood clots in your lungs as well as bacterial pneumonias. Tessalon Perles 1 capsule every 6 hours as necessary for cough. Ondansetron one tablet every 6 hours under the tongue as necessary for nausea. Tylenol and Motrin as necessary for body aches and fever. If you're having consistently below 94% on your pulse oximetry then you should return to the nearest ER. All discharge instructions reviewed with patient and/or family. Voiced understanding. Scripts Benzonatate (TESSALON PERLES) 100 Mg Capsule 100 MG PO Q6H PRN for cough, #30 CAP 0 Refills Prov: RADHA SHEPHERD 10/23/20 Ondansetron (Ondansetron Odt) 4 Mg Tab.rapdis 4 MG PO Q6H PRN for NAUSEA/VOMITING, #15 TAB 0 Refills Prov: RADHA SHEPHERD 10/23/20 RADHA SHEPHERD Oct 23, 2020 16:52
--- NOTE | 2020-10-23 17:28 | Diagnostic Imaging Report ---
EXAMINATION: Chest 1 view HISTORY: Cough, shortness of breath, COVID positive. COMPARISON: Chest radiograph of 09/12/2014. FINDINGS: Heart size and pulmonary vasculature are normal. The lungs are clear without consolidation, pleural effusion, or pneumothorax. The osseous structures are intact. IMPRESSION: 1. No acute radiographic abnormality in the chest. Dictated by: Dictated on workstation # [id number]
[2020-10-23] MEDS ORDERED: ONDA4TAB11 PO (18:30)
[2020-10-23] MEDS ORDERED: BENZ100C18 PO (18:30)
[2020-10-23 19:00] VITALS: BP 149/96
== END 2020-10-23 19:00 | disposition home or self-care (01) ==
LOC: EDUNIT# 15:14 → ER 15:16
DX: U07.1 COVID-19 (principal); Z87.891 Personal history of nicotine dependence; Z95.9 Presence of cardiac and vascular implant and graft, unspecified; Z88.8 Allergy status to other drugs, medicaments and biological substances
CPT/HCPCS: 36415; 71045; 80053; 84145; 85025; 85379; 86141; 93005